=== PATIENT | female | born 1990 | race Caucasian/White ===

== ENCOUNTER 2024-02-15 13:37 | Outpatient (CLI) | payer BC, SELFPAY ==
[2024-02-15 13:58] VITALS: BP 158/93; PULSE 78
[2024-02-15 14:00] VITALS: BMI 34.7
[2024-02-15 14:10] LABS: Basophils Percent Auto 0.2 % (0.2-1.2); Eosinophils Absolute Auto 0.1 K/mm3 (0-0.3); Hematocrit 35.9 % (37.0-47.0); Hemoglobin 12.3 g/dL (12.0-15.0); Immature Granulocyte Absolute 0.04 K/mm3 (0.00-0.031); Immature Granulocyte Percent A 0.3 % (0-0.5); Lymphocytes Percent Auto 16.1 % (18.3-44.2); Mean Corpuscular HGB Conc 34.3 g/dl (32-36); Mean Corpuscular Hemoglobin 29.8 pg (26-34); Mean Corpuscular Volume 86.9 fl (80-100); Mean Platelet Volume 10.2 fl (7.4-10.4); Neutrophils Absolute Auto 9.3 K/mm3 (1.3-6.7); Neutrophils Percent Auto 74.4 % (45.5-73.1); Platelet Count Result 331 k/mm3 (150-375); Red Blood Count 4.13 M/mm3 (4.2-5.4); Red Cell Distribution Width 13.4 % (11.5-14.5); White Blood Count 12.5 K/mm3 (4.5-10.0)
[2024-02-15 14:15] VITALS: BP 157/88; PULSE 86
[2024-02-15 14:15] LABS: Appearance Urine Clear (Clear); Bacteria Urine Rare /hpf; Bilirubin Urine Negative (Negative); Blood Urine Negative (Negative); Color Urine Yellow (Yellow); Glucose Urine UA Negative (Negative); Ketones Urine Negative (Negative); Leukocyte Esterase Ur 2+ LEU/UL (Negative); Nitrate Urine Negative (Negative); Non Pathogenic Casts 0-2; Protein Urine Negative (Negative); RBC Urine 0-2 /hpf (0-2); Specific Grav Ur 1.006 (1.001-1.035); Squamous Epithelial Cell Urine Moderate /hpf (Few); Urobilinogen Urine 0.2 mg/dL (<2.0); pH Urine 7.5 (5.0-9.0)
[2024-02-15 14:20] LABS: Add Urine Microscopic? YES; Creatinine Urine 34.5 mg/dL; Total Protein Urine Random 15 mg/dL; Ur Ttl Prot Creatinine Ratio 0.43 mg/mg (0-0.20)
[2024-02-15 14:28] LABS: Alanine Aminotransferase 16 U/L (6-35); Albumin Level 3.8 g/dL (3.5-5.1); Alkaline Phosphatase 140 U/L (38-126); Anion Gap 9 mmol/L (4-12); Aspartate Amino Transferase 22 U/L (14-36); Bilirubin,Total 0.3 mg/dL (0.2-1.3); Blood Urea Nitrogen 5 mg/dL (7-17); Calcium 9.6 mg/dL (8.4-10.2); Carbon Dioxide 17 mmol/L (22-30); Chloride 111 mmol/L (98-107); Estimated Glomerular Filt Rate > 60; Glucose 84 mg/dL (65-110); Potassium 3.6 mmol/L (3.4-5.0); Sodium 137 mmol/L (137-145)
[2024-02-15 14:30] VITALS: BP 149/81; PULSE 84
== END 2024-02-15 14:55 | disposition home or self-care (01) ==
LOC: ANHOBOP 13:41 → ANHLDR 13:42
PROVIDERS: PCP Family Medicine; Visit Provider Obstetrics & Gynecology
DX: O13.9 Gestational [pregnancy-induced] hypertension without significant proteinuria, unspecified trimester (principal)
CPT/HCPCS: 36415; 59025; 80053; 81001; 81050; 82570; 82575; 84156; 84550; 85025; 87086; 99199

== ENCOUNTER 2024-02-16 19:48 | Outpatient (CLI) | payer BC, SELFPAY ==
[2024-02-16 20:07] VITALS: BMI 34.8
[2024-02-16 23:11] LABS: Collection Time Urine 24 HOURS
[2024-02-16 23:35] LABS: Creatinine Urine 63.1 mg/dL; Patient Weight 216 Lbs; Total Protein Urine Random 13 mg/dL
[2024-02-16 23:37] LABS: Creatinine Clearance Urine 257.6 ml/min (75-125); Total Protein Urine 24 Hr 455 mg/24hr (28-141); Total Volume 24 Hour Urine 3500 ml
[2024-02-16 23:39] LABS: Specific Gravity Ur 1.014
== END 2024-02-16 19:49 | disposition home or self-care (01) ==
LOC: ANHLAB 20:01
PROVIDERS: PCP Family Medicine; Visit Provider Obstetrics & Gynecology
DX: O13.9 Gestational [pregnancy-induced] hypertension without significant proteinuria, unspecified trimester (principal); Z3A.00 Weeks of gestation of pregnancy not specified
CPT/HCPCS: 81050; 82575; 84156

== ENCOUNTER 2024-02-19 10:57 | Outpatient (CLI) | payer BC, SELFPAY ==
[2024-02-19] VITALS (9 sets, daily range): BP systolic 152–159; BP diastolic 87–95; PULSE 80–94
--- NOTE | ~2024-02-19 | US_ITS ---
EXAMINATION: US OB follow up DATE: 02/19/2024 14:09 INDICATION: Preeclampsia. Third trimester. TECHNIQUE: Real-time ultrasound of the pelvis was performed. COMPARISON: None. FINDINGS: There is a single living fetus in vertex presentation. The placenta is fundal and posterior. h eart rate is 153 beats per minute (bpm). The amniotic fluid index is 13.4 cm, which is normal. The following biometric data were obtained: Biparietal diameter (BPD): 8.1 cm; head circumference (HC): 31.9 cm; abdominal circumference (AC): 30 .9 cm; femur length (FL): 6.7 cm. These measurements are concordant. Estimated weight is 2463 g +/- 369 g, which correlates with the 49th percentile when 03/29/24 is used as estimated date of delivery. As single measurements, these parameters are each equal to the following estimated gestational ages: BPD: 32 weeks 3 days. HC: 35 weeks 6 days. AC: 34 weeks 6 days. FL: 34 weeks 3 days. estimated gestational age based solely on measurements from this exam is 34 weeks 3 days +/- 2 weeks 3 days. IMPRESSION: 1. Single living fetus in vertex presentation. 2. Estimated weight is 2463 g +/- 369 g, which correlates with the 49th percentile when 03/29/24 is used as estimated date of delivery. Reviewed, dictated and finalized at location A.
[2024-02-19] MEDS: NIFEdipine 30 MG TAB.ER.24 PO (11:24)
[2024-02-19] MEDS: BETAMETHASONE SOD PHOS/ACETATE 30 MG/5 ML VIAL 12 MG IM (11:25)
[2024-02-19 11:46] LABS: Basophils Percent Auto 0.2 % (0.2-1.2); Eosinophils Absolute Auto 0.1 K/mm3 (0-0.3); Eosinophils Percent Auto 1.3 % (0-4.4); Hematocrit 35.9 % (37.0-47.0); Hemoglobin 11.9 g/dL (12.0-15.0); Immature Granulocyte Absolute 0.03 K/mm3 (0.00-0.031); Immature Granulocyte Percent A 0.3 % (0-0.5); Lymphocytes Absolute Auto 1.94 K/mm3 (0.9-3.2); Lymphocytes Percent Auto 20.4 % (18.3-44.2); Mean Corpuscular HGB Conc 33.1 g/dl (32-36); Mean Corpuscular Hemoglobin 29.7 pg (26-34); Mean Corpuscular Volume 89.5 fl (80-100); Mean Platelet Volume 10.1 fl (7.4-10.4); Monocytes Absolute Auto 0.8 K/mm3 (0.1-0.6); Monocytes Percent Auto 8.4 % (2.6-8.5); Neutrophils Absolute Auto 6.6 K/mm3 (1.3-6.7); Neutrophils Percent Auto 69.4 % (45.5-73.1); Platelet Count Result 329 k/mm3 (150-375); Red Blood Count 4.01 M/mm3 (4.2-5.4); Red Cell Distribution Width 13.3 % (11.5-14.5); White Blood Count 9.5 K/mm3 (4.5-10.0)
[2024-02-19 11:52] LABS: Appearance Urine Cloudy (Clear); Bacteria Urine Rare /hpf; Bilirubin Urine Negative (Negative); Blood Urine Negative (Negative); Color Urine Yellow (Yellow); Glucose Urine UA Trace mg/dL (Negative); Ketones Urine Negative (Negative); Leukocyte Esterase Ur 2+ LEU/UL (Negative); Nitrate Urine Negative (Negative); Non Pathogenic Casts 0-2; Protein Urine Negative (Negative); RBC Urine 0-2 /hpf (0-2); Specific Grav Ur 1.011 (1.001-1.035); Squamous Epithelial Cell Urine Many /hpf (Few); Urobilinogen Urine 0.2 mg/dL (<2.0); pH Urine 7.5 (5.0-9.0)
[2024-02-19 11:54] LABS: Add Urine Microscopic? YES
--- NOTE | 2024-02-19 12:11 | PC.NURSE ---
Patient admits to L&D unit with orders from Dr. La to do a PIH workup as well as give a dose of betamethasone and a one time dose of 30mg Procardia XL. Orders also received for ultrasound to check MANNY and estimated weight. Patient denies headache, blurred vision, ringing in the ears, or any abdominal cramping. Patient has trace swelling in bilateral ankles consistent with gestational age.
[2024-02-19 12:19] LABS: Creatinine Urine 71.9 mg/dL; Total Protein Urine Random 15 mg/dL; Ur Ttl Prot Creatinine Ratio 0.21 mg/mg (0-0.20)
[2024-02-19 12:20] LABS: Alanine Aminotransferase 14 U/L (6-35); Albumin Level 3.4 g/dL (3.5-5.1); Alkaline Phosphatase 127 U/L (38-126); Anion Gap 5 mmol/L (4-12); Aspartate Amino Transferase 20 U/L (14-36); Bilirubin,Total 0.3 mg/dL (0.2-1.3); Blood Urea Nitrogen 5 mg/dL (7-17); Calcium 9.2 mg/dL (8.4-10.2); Carbon Dioxide 19 mmol/L (22-30); Chloride 113 mmol/L (98-107); Estimated Glomerular Filt Rate > 60; Glucose 104 mg/dL (65-110); Potassium 3.6 mmol/L (3.4-5.0); Sodium 137 mmol/L (137-145); Uric Acid 4.2 mg/dL (2.5-7.5)
--- NOTE | 2024-02-19 14:00 | PC.NURSE ---
Called Dr. La with PIH lab values, serial BP results, and US results. Verbal orders received from Dr. La to discharge patient with orders to make an appointment with OB office to be seen early next week and patient sent home with prescription for Procardia XL 30mg. Patient agrees with plan of care and has no questions at this time.
== END 2024-02-19 14:05 | disposition home or self-care (01) ==
LOC: ANHOBOP 11:04 → ANHOBPP 11:05
PROVIDERS: PCP Family Medicine; Visit Provider Obstetrics & Gynecology
DX: O13.9 Gestational [pregnancy-induced] hypertension without significant proteinuria, unspecified trimester (principal); Z3A.34 34 weeks gestation of pregnancy
CPT/HCPCS: 36415; 59025; 76816; 80053; 81001; 82570; 84156; 84550; 85025; 87086; 96372; 99199; A9270; J0702

== ENCOUNTER 2024-02-20 12:11 | Outpatient (CLI) | payer BC, SELFPAY ==
[2024-02-20] MEDS: BETAMETHASONE SOD PHOS/ACETATE 30 MG/5 ML VIAL 12 MG IM (12:25)
== END 2024-02-20 12:27 | disposition home or self-care (01) ==
LOC: ANHOBOP 12:15 → ANHLDR 12:16
PROVIDERS: PCP Family Medicine; Visit Provider Obstetrics & Gynecology
DX: Z36.84 Encounter for antenatal screening for fetal lung maturity (principal)
CPT/HCPCS: 96372; 99199; J0702

== ENCOUNTER 2024-02-23 13:15 | Outpatient (CLI) | payer BC, SELFPAY ==
[2024-02-23] VITALS (78 sets, daily range): BP systolic 146–159; BP diastolic 80–96; PULSE 86–124; RESP 18–22; TEMP 38.2–38.8; O2SAT 92–100; BMI 37.0
--- NOTE | 2024-02-23 13:30 | OBADM ---
This patient, Kamille Menchaca, admitted to the OB room 113 for observation. Patient/family oriented to hospital policies and general routines including ID bracelet, bed and alarms, visiting hours, pain management, procedures, bathroom and other care routines, personal items, smoking policy, room service/diet, and visiting hours. Patient/Family are encouraged to report perceived risks to care and to ask questions if they do not understand what they are told or what they should do.
[2024-02-23] MEDS: ONDANSETRON INJ 4 MG/2 ML VIAL IV PUSH (14:30)
[2024-02-23] MEDS: DEXTROSE 5%/LACTATED RINGERS 1,000 ML 999 ML IV CONT (14:30)
[2024-02-23 14:45] LABS: Basophils Percent Auto 0.2 % (0.2-1.2); Eosinophils Percent Auto 0.2 % (0-4.4); Hematocrit 36.7 % (37.0-47.0); Hemoglobin 12.7 g/dL (12.0-15.0); Immature Granulocyte Absolute 0.06 K/mm3 (0.00-0.031); Immature Granulocyte Percent A 0.5 % (0-0.5); Lymphocytes Absolute Auto 1.53 K/mm3 (0.9-3.2); Lymphocytes Percent Auto 12.4 % (18.3-44.2); Mean Corpuscular HGB Conc 34.6 g/dl (32-36); Mean Corpuscular Hemoglobin 30.2 pg (26-34); Mean Corpuscular Volume 87.2 fl (80-100); Mean Platelet Volume 10.4 fl (7.4-10.4); Monocytes Absolute Auto 0.9 K/mm3 (0.1-0.6); Monocytes Percent Auto 7.2 % (2.6-8.5); Neutrophils Absolute Auto 9.8 K/mm3 (1.3-6.7); Neutrophils Percent Auto 79.5 % (45.5-73.1); Platelet Count Result 346 k/mm3 (150-375); Red Blood Count 4.21 M/mm3 (4.2-5.4); Red Cell Distribution Width 13.6 % (11.5-14.5); White Blood Count 12.3 K/mm3 (4.5-10.0)
[2024-02-23 14:55] LABS: Alanine Aminotransferase 15 U/L (6-35); Albumin Level 3.5 g/dL (3.5-5.1); Alkaline Phosphatase 146 U/L (38-126); Anion Gap 7 mmol/L (4-12); Aspartate Amino Transferase 19 U/L (14-36); Bilirubin,Total 0.4 mg/dL (0.2-1.3); Blood Urea Nitrogen 8 mg/dL (7-17); Calcium 8.7 mg/dL (8.4-10.2); Carbon Dioxide 19 mmol/L (22-30); Chloride 111 mmol/L (98-107); Estimated Glomerular Filt Rate > 60; Glucose 94 mg/dL (65-110); Potassium 3.7 mmol/L (3.4-5.0); Sodium 137 mmol/L (137-145); Uric Acid 4.2 mg/dL (2.5-7.5)
[2024-02-23] MEDS: ACETAMINOPHEN 500 MG TABLET 1000 MG PO (14:59)
[2024-02-23 15:18] LABS: Appearance Urine Cloudy (Clear); Bacteria Urine 2+ /hpf; Bilirubin Urine Negative (Negative); Blood Urine Negative (Negative); Color Urine Yellow (Yellow); Glucose Urine UA 1+ mg/dL (Negative); Ketones Urine 2+ mg/dL (Negative); Leukocyte Esterase Ur 2+ LEU/UL (Negative); Nitrate Urine Negative (Negative); Non Pathogenic Casts 0-2; Protein Urine Negative (Negative); RBC Urine 0-2 /hpf (0-2); Specific Grav Ur 1.017 (1.001-1.035); Squamous Epithelial Cell Urine Many /hpf (Few); Urobilinogen Urine 0.2 mg/dL (<2.0); WBC Urine 21-50 /hpf (0-3); pH Urine 7.5 (5.0-9.0)
[2024-02-23 15:25] LABS: Add Urine Microscopic? YES
[2024-02-23 15:27] LABS: Creatinine Urine 94.1 mg/dL; Total Protein Urine Random 10 mg/dL; Ur Ttl Prot Creatinine Ratio 0.11 mg/mg (0-0.20)
[2024-02-23] MEDS: DEXTROSE 5%/LACTATED RINGERS 1,000 ML 500 ML IV CONT (16:32)
--- NOTE | 2024-02-23 18:40 | PC.NURSE ---
Viridiana- RN received report from Zahra Guzman RN. RN discussed plan of care with patient. Patient agrees with plan of care at this time.
--- NOTE | 2024-02-23 19:53 | PC.NURSE ---
1939- Patient states she is feeling much better. Patient is able to keep PO fluids and soft foods down. Patient temperature down to 99.8. Patient would like to go home since she is feeling better now.
--- NOTE | 2024-02-23 19:55 | PC.NURSE ---
1950- RN gave patient d/c instructions. Patient verbalized understanding with all d/c instructions and no questions at this time. RN sent Rx to pharmacy. Patient to follow up with OB office Monday.
== END 2024-02-23 19:50 | disposition home or self-care (01) ==
LOC: ANHOBOP 13:28 → ANHOBPP 13:29
PROVIDERS: PCP Family Medicine; Visit Provider Obstetrics & Gynecology
DX: Z34.90 Encounter for supervision of normal pregnancy, unspecified, unspecified trimester (principal); Z3A.00 Weeks of gestation of pregnancy not specified
CPT/HCPCS: 36415; 80053; 81001; 82570; 84156; 84550; 85025; 87086; 87088; 96361; 96374; 99199; A9270; J2405; J7121

== ENCOUNTER 2024-03-01 15:58 | Outpatient (RCR) | payer BC, SELFPAY ==
[2024-03-01 17:10] LABS: Basophils Percent Auto 0.1 % (0.2-1.2); Eosinophils Absolute Auto 0.1 K/mm3 (0-0.3); Eosinophils Percent Auto 1.2 % (0-4.4); Hematocrit 32.3 % (37.0-47.0); Hemoglobin 10.7 g/dL (12.0-15.0); Immature Granulocyte Absolute 0.04 K/mm3 (0.00-0.031); Immature Granulocyte Percent A 0.4 % (0-0.5); Lymphocytes Absolute Auto 2.23 K/mm3 (0.9-3.2); Lymphocytes Percent Auto 24.5 % (18.3-44.2); Mean Corpuscular HGB Conc 33.1 g/dl (32-36); Mean Corpuscular Hemoglobin 29.6 pg (26-34); Mean Corpuscular Volume 89.5 fl (80-100); Mean Platelet Volume 9.8 fl (7.4-10.4); Monocytes Absolute Auto 0.7 K/mm3 (0.1-0.6); Monocytes Percent Auto 8.1 % (2.6-8.5); Neutrophils Percent Auto 65.7 % (45.5-73.1); Platelet Count Result 361 k/mm3 (150-375); Red Blood Count 3.61 M/mm3 (4.2-5.4); Red Cell Distribution Width 13.9 % (11.5-14.5); White Blood Count 9.1 K/mm3 (4.5-10.0)
[2024-03-01 17:14] LABS: Appearance Urine Cloudy (Clear); Bacteria Urine None Seen /hpf; Bilirubin Urine Negative (Negative); Blood Urine Negative (Negative); Color Urine Yellow (Yellow); Glucose Urine UA Negative (Negative); Ketones Urine Negative (Negative); Leukocyte Esterase Ur 1+ LEU/UL (Negative); Nitrate Urine Negative (Negative); Non Pathogenic Casts 0-2; Protein Urine Negative (Negative); RBC Urine 0-2 /hpf (0-2); Specific Grav Ur 1.015 (1.001-1.035); Squamous Epithelial Cell Urine Few /hpf (Few); Urobilinogen Urine 0.2 mg/dL (<2.0); pH Urine 7.5 (5.0-9.0)
[2024-03-01 17:16] LABS: Creatinine Urine 64.5 mg/dL; Total Protein Urine Random 14 mg/dL; Ur Ttl Prot Creatinine Ratio 0.22 mg/mg (0-0.20)
[2024-03-01 17:20] LABS: Alanine Aminotransferase 69 U/L (6-35); Albumin Level 3.3 g/dL (3.5-5.1); Alkaline Phosphatase 139 U/L (38-126); Anion Gap 4 mmol/L (4-12); Aspartate Amino Transferase 40 U/L (14-36); Bilirubin,Total 0.2 mg/dL (0.2-1.3); Blood Urea Nitrogen 5 mg/dL (7-17); Carbon Dioxide 23 mmol/L (22-30); Chloride 109 mmol/L (98-107); Estimated Glomerular Filt Rate > 60; Glucose 96 mg/dL (65-110); Potassium 3.7 mmol/L (3.4-5.0); Sodium 136 mmol/L (137-145); Uric Acid 3.9 mg/dL (2.5-7.5)
[2024-03-01 17:27] LABS: Add Urine Microscopic? YES
[2024-03-01 17:32] VITALS: BP 153/86; PULSE 73
== END 2024-05-30 23:59 | disposition home or self-care (01) ==
LOC: ANHOBOP 15:58
PROVIDERS: PCP Family Medicine; Visit Provider Obstetrics & Gynecology
DX: O16.3 Unspecified maternal hypertension, third trimester (principal); Z3A.00 Weeks of gestation of pregnancy not specified
CPT/HCPCS: 36415; 59025; 80053; 81001; 82570; 84156; 84550; 85025; 87086

== ENCOUNTER 2024-03-07 17:29 | Inpatient (IN) | payer BC, SELFPAY ==
[2024-03-07] VITALS (38 sets, daily range): BP systolic 129–168; BP diastolic 71–102; PULSE 77–99; RESP 18; TEMP 36.7–37.1; O2SAT 95–100; BMI 34.8
--- NOTE | 2024-03-07 17:29 | LDADM ---
This patient, Kamille Menchaca, was admitted to Labor/Delivery/Recovery 107 on 03/07/24 at 17:29. Plans for labor, pain management and were discussed with patient. Patient/family oriented to hospital policies and general routines including ID bracelet, bed and alarms, visiting hours, pain management, procedures, bathroom and other care routines, personal items, smoking policy, room service/diet and guest tray routines, infant security routines, and visiting hours. Patient/Family are encouraged to report perceived risks to care and to ask questions if they do not understand what they are told or what they should do. See OBIX for further documentation.
[2024-03-07 17:55] LABS: Basophils Percent Auto 0.2 % (0.2-1.2); Eosinophils Absolute Auto 0.1 K/mm3 (0-0.3); Hematocrit 35.3 % (37.0-47.0); Hemoglobin 12.2 g/dL (12.0-15.0); Immature Granulocyte Absolute 0.04 K/mm3 (0.00-0.031); Immature Granulocyte Percent A 0.3 % (0-0.5); Lymphocytes Absolute Auto 2.17 K/mm3 (0.9-3.2); Lymphocytes Percent Auto 18.5 % (18.3-44.2); Mean Corpuscular HGB Conc 34.6 g/dl (32-36); Mean Corpuscular Volume 86.9 fl (80-100); Mean Platelet Volume 9.9 fl (7.4-10.4); Monocytes Absolute Auto 0.9 K/mm3 (0.1-0.6); Monocytes Percent Auto 7.5 % (2.6-8.5); Neutrophils Absolute Auto 8.5 K/mm3 (1.3-6.7); Neutrophils Percent Auto 72.5 % (45.5-73.1); Platelet Count Result 430 k/mm3 (150-375); Red Blood Count 4.06 M/mm3 (4.2-5.4); Red Cell Distribution Width 13.4 % (11.5-14.5); White Blood Count 11.8 K/mm3 (4.5-10.0)
[2024-03-07 18:07] LABS: Alanine Aminotransferase 30 U/L (6-35); Albumin Level 3.9 g/dL (3.5-5.1); Alkaline Phosphatase 174 U/L (38-126); Anion Gap 8 mmol/L (4-12); Aspartate Amino Transferase 24 U/L (14-36); Bilirubin,Total 0.3 mg/dL (0.2-1.3); Blood Urea Nitrogen 6 mg/dL (7-17); Calcium 9.6 mg/dL (8.4-10.2); Carbon Dioxide 19 mmol/L (22-30); Chloride 110 mmol/L (98-107); Estimated CRCL calculation 159 ml/min; Estimated Glomerular Filt Rate > 60; Glucose 122 mg/dL (65-110); Potassium 3.7 mmol/L (3.4-5.0); Sodium 137 mmol/L (137-145); Uric Acid 4.3 mg/dL (2.5-7.5)
[2024-03-07] MEDS: DINOPROSTONE 10 MG VAG INSERT VAGINAL (18:18)
[2024-03-07] MEDS: LABETALOL HCL 100 MG TABLET PO (18:35)
[2024-03-07 18:47] LABS: HIV 1/2 Ab P24 Ag Result Negative (Negative)
--- NOTE | 2024-03-07 19:30 | WPDANESEPP ---
Anes - Eval Pre Procedure Procedure: Labor epidural Date/Time: 03/07/24 19:30 Pre Op Diagnosis: IOL Patient Data Age: 33 Gender: F Height: 1.68 m Weight: 98 kg Last Vital Signs Temp 37.1 C 03/07/24 18:17 Pulse 82 03/07/24 19:16 Resp 18 03/07/24 18:10 BP 152/80 H 03/07/24 19:16 Pulse Ox 98 03/07/24 19:25 O2 Del Method Room Air 03/07/24 19:07 Allergies Allergy/AdvReac Type Severity Reaction Status Date / Time amoxicillin Allergy Unknown Unknown Verified 03/07/24 17:45 ultrasound gel Allergy Intermediate Rash Uncoded 03/07/24 17:47 Home Medications Medication Instructions Recorded Confirmed Type aspirin 81 mg chewable tablet 81 mg PO DAILY 09/13/23 03/01/24 History cholecalciferol (vitamin D3) 50 50 mcg PO DAILY 09/13/23 03/01/24 History mcg (2,000 unit) capsule vits no.126-ferrous fum 1 tablet PO DAILY 09/13/23 03/01/24 History 28 mg iron-folic acid 800 mcg tablet (Classic ) labetalol 100 mg tablet 100 mg PO Q12H 03/01/24 03/01/24 History Laboratory Tests 03/07/24 03/07/24 17:39 17:39 WBC 11.8 H K/mm3 (4.5-10.0) RBC 4.06 L M/mm3 (4.2-5.4) Hgb 12.2 g/dL (12.0-15.0) Hct 35.3 L % (37.0-47.0) MCV 86.9 fl (80-100) MCH 30.0 pg (26-34) MCHC 34.6 g/dl (32-36) RDW 13.4 % (11.5-14.5) Plt Count 430 H k/mm3 (150-375) MPV 9.9 fl (7.4-10.4) Immature Gran % (Auto) 0.3 % (0-0.5) Neut % (Auto) 72.5 % (45.5-73.1) Lymph % (Auto) 18.5 % (18.3-44.2) [place] % (Auto) 7.5 % (2.6-8.5) Eos % (Auto) 1.0 % (0-4.4) Baso % (Auto) 0.2 % (0.2-1.2) Lymph # (Auto) 2.17 K/mm3 (0.9-3.2) [place] # (Auto) 0.9 H K/mm3 (0.1-0.6) Eos # (Auto) 0.1 K/mm3 (0-0.3) Baso # (Auto) 0.0 K/mm3 (0.0-0.1) Abs Immat Gran (auto) 0.04 H K/mm3 (0.00-0.031) Absolute Neuts (auto) 8.5 H K/mm3 (1.3-6.7) Absolute Nucleated RBC 0.000 K/mm3 (0.0-0.012) Nucleated RBC % 0.0 % (0.0-0.2) Sodium 137 mmol/L (137-145) Potassium 3.7 mmol/L (3.4-5.0) Chloride 110 H mmol/L (98-107) Carbon Dioxide 19 L mmol/L (22-30) Anion Gap 8 mmol/L (4-12) BUN 6 L mg/dL (7-17) Creatinine 0.50 L mg/dL (0.7-1.0) Estim Creat Clear Calc 159 ml/min Estimated GFR > 60 (59 - ) Glucose 122 H mg/dL (65-110) Uric Acid Cancelled 4.3 mg/dL (2.5-7.5) Calcium 9.6 mg/dL (8.4-10.2) Total Bilirubin 0.3 mg/dL (0.2-1.3) AST 24 U/L (14-36) ALT 30 U/L (6-35) Alkaline Phosphatase 174 H U/L (38-126) Total Protein 7.0 g/dL (6.3-8.2) Albumin 3.9 g/dL (3.5-5.1) RPR Pending HIV 1&2 Ab/P24 Ag 4thGn Negative (Negative) Blood Type O Positive Antibody Screen Negative Patient hx anesthesia problems: none Family hx anesthesia problems: none Results Review: All pre-operative results and documents have been reviewed as part of the pre-operative evaluation. [facility] Past Medical History Medical History (Updated 03/07/24 @ 19:31 by Cheri Jack CRNA) Complex regional pain syndrome i of left lower limb Dysmenorrhea Pre-eclampsia Family History Family History Other Breast cancer Cerebrovascular accident Diabetes mellitus Hypertension Malignant neoplasm of prostate Social History Social History Smoking status: Never smoker Alcohol intake: former Substance use: never Do You Feel Safe in your Home?: No Lack of Transportation: No Lack of Food: Never True Current Housing: I Have Housing Concerned About Future Housing: No Difficulty Paying Gas/Electric Bills: No Difficulty Paying for Meds: No Currently Unemployed:
[2024-03-08] VITALS (348 sets, daily range): BP systolic 108–181; BP diastolic 56–107; PULSE 68–118; TEMP 36.6–37.7; O2SAT 93–100
--- NOTE | 2024-03-08 04:54 | PC.NURSE ---
Telephone order received from Dr. La at 1247 to administer morning dose of labetolol at this time. Reported to pharmacist to adjust time in DEC. Will chart accordingly.
[2024-03-08] MEDS: LABETALOL HCL 100 MG TABLET PO ×2 (04:57→17:26)
[2024-03-08] MEDS: LACTATED RINGERS 1,000 ML 125 ML IV CONT ×4 (05:20→20:47)
[2024-03-08] MEDS: OXYTOCIN 30 UNITS/NS 500 ML 30 UNITS/500 ML BAG IV CONT (05:35)
--- NOTE | 2024-03-08 08:51 | PM.IMHP ---
H&P: HPI History of Present Illness Date/Time: 03/08/24 08:51 Chief Complaint: Here for induction of labor. Narrative: 34 y/o G1 at 37 weeks here for induction of labor due to preeclampsia. Has been taking labetalol 100 mg po bid. No headache, visual field change, or abdominal pain. Good movement. Cervidil overnight, has been withdrawn. GBS neg. Review of Systems Review of Systems: All systems reviewed & are unremarkable except as noted in HPI and below PMFSH Past Medical History Medical History Complex regional pain syndrome i of left lower limb Dysmenorrhea Pre-eclampsia Family History Family History Other Breast cancer Cerebrovascular accident Diabetes mellitus Hypertension Malignant neoplasm of prostate Social History Social History Smoking status: Never smoker Alcohol intake: former Substance use: never Do You Feel Safe in your Home?: No Lack of Transportation: No Lack of Food: Never True Current Housing: I Have Housing Concerned About Future Housing: No Difficulty Paying Gas/Electric Bills: No Difficulty Paying for Meds: No Currently Unemployed: No Education: High School Diploma/GED Difficulty w/ Childcare or Family Care: No Spiritual care concerns: No Meds Home Medications and Allergies Home Medications Medication Instructions Recorded Confirmed Type aspirin 81 mg chewable tablet 81 mg PO DAILY 09/13/23 03/01/24 History cholecalciferol (vitamin D3) 50 50 mcg PO DAILY 09/13/23 03/01/24 History mcg (2,000 unit) capsule vits no.126-ferrous fum 1 tablet PO DAILY 09/13/23 03/01/24 History 28 mg iron-folic acid 800 mcg tablet (Classic ) labetalol 100 mg tablet 100 mg PO Q12H 03/01/24 03/01/24 History Allergies Allergy/AdvReac Type Severity Reaction Status Date / Time amoxicillin Allergy Unknown Unknown Verified 03/07/24 17:45 ultrasound gel Allergy Intermediate Rash Uncoded 03/07/24 17:47 Vital Signs Vital Signs - 24 hr 03/07/24 18:10 03/07/24 18:30 03/07/24 18:35 Temperature 37.1 C Pulse Rate 93 89 Respiratory Rate 18 Blood Pressure 168/102 H 157/90 H Pulse Oximetry 98 98 Oxygen Delivery 03/07/24 18:40 03/07/24 18:45 03/07/24 18:17 Temperature 37.1 C Pulse Rate 80 Respiratory Rate Blood Pressure 153/82 H Pulse Oximetry 98 100 Oxygen Delivery 03/07/24 18:50 03/07/24 18:55 03/07/24 19:00 Temperature Pulse Rate Respiratory Rate Blood Pressure Pulse Oximetry 96 98 98 Oxygen Delivery 03/07/24 19:05 03/07/24 19:10 03/07/24 19:15 Temperature Pulse Rate Respiratory Rate Blood Pressure Pulse Oximetry 97 98 99 Oxygen Delivery 03/07/24 19:16 03/07/24 19:20 03/07/24 19:25 Temperature Pulse Rate 82 Respiratory Rate Blood Pressure 152/80 H Pulse Oximetry 97 98 Oxygen Delivery 03/07/24 19:30 03/07/24 19:35 03/07/24 19:40 Temperature Pulse Rate 82 Respiratory Rate Blood Pressure 151/81 H Pulse Oximetry 98 96 98 Oxygen Delivery 03/07/24 19:45 03/07/24 19:46 03/07/24 19:50 Temperature Pulse Rate 79 Respiratory Rate Blood Pressure 151/74 H Pulse Oximetry 99 97 Oxygen Delivery 03/07/24 19:55 03/07/24 20:00 03/07/24 20:01 Temperature Pulse Rate 80 Respiratory Rate Blood Pressure 146/77 H Pulse Oximetry 95 97 Oxygen Delivery 03/07/24 20:05 03/07/24 20:10 03/07/24 20:15 Temperature Pulse Rate Respiratory Rate Blood Pressure Pulse Oximetry 97 97 99 Oxygen Delivery 03/07/24 20:16 03/07/24 20:20 03/07/24 20:22 Temperature 36.7 C Pulse Rate 77 Respiratory Rate Blood Pressure 143/78 H Pulse Oximetry 97 96 Oxygen Delivery 03/07/24 20:31 03/07/24 21:00
[2024-03-08 11:23] LABS: Rapid Plasma Reagin Non-Reactive (NonReactive)
[2024-03-08] MEDS: ONDANSETRON INJ 4 MG/2 ML VIAL IV PUSH (12:41)
--- NOTE | 2024-03-08 16:52 | PM.OBPNLAB ---
Pain Control Date/time seen: 03/08/24 12:30 Comfortable with epidural. AVSS NST reactive TOCO: contractions every 2-3 min ABD soft, nontender, gravid, vertex EXT nontender Cervix 1-250/-2. AROM with clear fluid. Continue labor.
--- NOTE | 2024-03-08 16:54 | PM.OBPNLAB ---
Pain Control Date/time seen: 03/08/24 16:50 Comfortable. AVSS NST reactive TOCO: contractions every 2-3 min Cervix 2-3/80/-2 Continue labor.
[2024-03-09] VITALS (96 sets, daily range): BP systolic 136–173; BP diastolic 63–99; PULSE 73–119; RESP 16–18; TEMP 36.9–37.5; O2SAT 85–100
[2024-03-09] MEDS: LABETALOL HCL 100 MG TABLET PO ×2 (05:25→08:25)
[2024-03-09] MEDS: OXYTOCIN 30 UNITS/NS 500 ML 30 UNITS/500 ML BAG 999 UNITS IV CONT (06:32)
--- NOTE | 2024-03-09 06:45 | PM.OBPRVD ---
OB - Vaginal Delivery Note Procedure Delivery date: 03/09/24 Events: Preeclampsia w/o severe features Induction method: Per Cervidil Protocol Delivery augmentation: Rupture of Membranes and Pitocin Delivery monitor: External FHT, External Uterine and Internal Uterine Route of delivery: Episiotomy description: None Laceration Description: Perineal - 2nd Degree Delivery repair: vicryl (3-0) Specimen: Yes (cord blood, placenta) Quantitative Blood Loss (ml): 140 Anesthesia type: Epidural Disposition: PACU Complications: None Narrative: 33 y/o G1 at 37 1/7 weeks gestation who presented to the hospital for induction of labor because of preeclampsia. Cervidil was placed overnight, then withdrawn the next morning. Oxytocin was administered intravenously. Amniotomy was performed with return of clear fluid. She received an epidural for pain control. Her labor progressed and her cervix dilated completely. She pushed with good effort and delivered the 's head to the perineum, followed by the body. The nose and mouth were bulb suctioned. After a delay, the cord was clamped and cut. The infant was handed off the field. Cord blood was collected. The placenta delivered spontaneously and was grossly normal in appearance. The usual 3 vessel cord was noted. A second degree midline perineal laceration was sustained. This was reapproximated using 3 0 Vicryl in the usual layered fashion. Excellent hemostasis resulted as did excellent reapproximation of the normal anatomy. Needle and instrument counts were correct. The patient was taken to recovery room in stable condition. The infant went to the nursery in stable condition. I was present and scrubbed for the entire delivery. Baby Date of : 03/09/24 Time of : 06:46 Weeks of gestation at delivery: 37 Infant gender: Male Weight (pounds): 5 Weight (ounces): 12 presentation: vertex position: Left Occiput Anterior Placenta delivery description: Spontaneous and Normal Configuration Cord Vessel Description: 3 Vessels, Nuchal Cord and Delayed Cord Clamping score one minute: 8 score five minutes: 8
--- NOTE | 2024-03-09 06:48 | PM.OBDSVD ---
DS: Admitting Diagnosis Discharge Date 03/11/24 Admitting Diagnosis IUP at 37 weeks Preeclampsia DS: Discharge Diagnosis Discharge Diagnosis (1) (normal spontaneous vaginal delivery): Code(s): O80 - Encounter for full-term uncomplicated delivery Status: Acute (2) Pre-eclampsia: Code(s): O14.90 - Unspecified pre-eclampsia, unspecified trimester Status: Acute OB - DS: Summary OB Procedures : PIH Mgmt OB Procedures Intrapartum: Spontaneous Vag Delivery OB Procedures: : None Peripartum Data Laceration Description: Perineal - 2nd Degree Episiotomy description: None Time Spent with Patient Time attestation: Total time spent providing and/or coordinating discharge services: DS: Data Data Completed and Pending Labs on day of discharge: Labs from last 24 hours 03/07/24 17:39 RPR Non-reactive Discharge Plan Discharge Attending physician on discharge: Pepe La Discharging Clinician: Pepe La Patient Disposition: Home, Self-Care Activity: pelvic rest Diet: regular Discharge Instructions: Call or return if temperature above 100.4? F, increased abdominal pain, increased vaginal bleeding or any new problems. Stand Alone Forms: General Discharge Information Follow-up/Referrals: Pepe La MD [Physician] - 6 Weeks Discharge Medications: New ferrous sulfate 325 mg (65 mg iron) tablet 325 mg PO DAILY Qty: 30 0RF ibuprofen 600 mg tablet 600 mg PO Q6H PRN (Reason: cramps) Qty: 30 0RF Continued Classic 28 mg iron- 800 mcg tablet 1 tablet PO DAILY cholecalciferol (vitamin D3) 50 mcg (2,000 unit) capsule 50 mcg PO DAILY Changed labetalol 100 mg Tablet 200 mg PO Q12H Qty: 60 0RF Discontinued aspirin 81 mg tablet,chewable 81 mg PO DAILY Date of admission: 03/07/24 17:29 Primary Care Provider: Nabil Maher Admitting Provider: Pepe La Attending physician on admission: Pepe La Condition: Stable
[2024-03-09] MEDS: OXYTOCIN 30 UNITS/NS 500 ML 30 UNITS/500 ML BAG 125 UNITS IV CONT (07:04)
[2024-03-09] MEDS: WITCH HAZEL 40 PADS 1 PAD TOPICAL (08:26)
[2024-03-09] MEDS: IBUPROFEN 600 MG TABLET PO ×2 (08:26→23:09)
[2024-03-09] MEDS: BENZOCAINE 20% AER SPR (*SP) 56 GM CAN 1 SPRAY TOPICAL (08:27)
--- NOTE | 2024-03-09 09:44 | OBPPTRN ---
0925-Patient transferred to post room #281 via wheelchair. Support person present. Oriented to unit, room, information board, rooming in, admission packet and security measures. Patient verbalizes understanding.
[2024-03-09] MEDS: ACETAMINOPHEN 325 MG TABLET 650 MG PO (18:32)
[2024-03-09] MEDS: LABETALOL HCL 100 MG TABLET 300 MG PO (19:17)
[2024-03-10] VITALS (7 sets, daily range): BP systolic 127–156; BP diastolic 71–94; PULSE 79–111; RESP 16–18; TEMP 36.8–37.1; O2SAT 98–100
[2024-03-10 06:01] LABS: Hematocrit 27.5 % (37.0-47.0)
[2024-03-10] MEDS: IBUPROFEN 600 MG TABLET PO ×3 (07:57→20:44)
[2024-03-10] MEDS: MULTIVIT/MIN/PREN/FOL AC/IRON TABLET 1 TAB PO ×2 (07:59)
[2024-03-10] MEDS: POLYSACCHARIDE IRON COMPLEX 150 MG CAPSULE PO ×2 (07:59→16:34)
[2024-03-10] MEDS: DOCUSATE SODIUM 100 MG CAPSULE PO ×2 (07:59→16:34)
[2024-03-10] MEDS: LABETALOL HCL 100 MG TABLET 300 MG PO ×2 (08:00→20:39)
--- NOTE | 2024-03-10 08:05 | PM.OBPNVD ---
OB - PN: Subj Subjective Date/time seen: 03/10/24 08:05 Narrative: Pain OK. Would like circumcision for son. OB - PN: Obj Data Labs 03/10/24 04:21 03/07/24 17:39 Labs: Laboratory Results - last 24 hr 03/10/24 04:21 Hgb 9.0 L D Hct 27.5 L OB - PN A/P Plan Comments: A: PPD#1, doing well. BP under decent control on labetalol 300 mg po bid. P: Routine care. Reviewed circ. Plan home tomorrow. Exam Psych: Other: AVSS ABD soft, nontender, fundus firm EXT nontender
--- NOTE | 2024-03-10 09:47 | WPDANLDPN2 ---
Anes-Prog Note L&D Date/Time: 03/10/24 09:47 Comfortable throughout: labor and delivery Neuraxial method: epidural Epidural/Spinal procedure site: clean & non-tender Neuro status: Neuro function grossly intact. Cardiovascular status: normal Respiratory status: normal Airway patency: baseline Mental status: baseline Post-Op hydration status: normal Vital Signs: Last Vital Signs Temp 36.8 C 03/10/24 04:15 Pulse 82 03/10/24 08:00 Resp 16 03/10/24 04:15 BP 137/82 03/10/24 04:15 Pulse Ox 98 03/10/24 04:15 O2 Del Method Room Air 03/09/24 10:00 Pain score (VAS): 2 I/O: Intake & Output 03/09/24 03/10/24 03/10/24 23:59 07:59 15:59 Intake Total 300 850 Output Total 500 1950 Balance -200 -1100 Post-procedural complaints: none Patient feedback: Patient satisfied with anesthetic care.
[2024-03-10] MEDS: ACETAMINOPHEN 325 MG TABLET 650 MG PO (20:44)
[2024-03-11 03:45] VITALS: BP 138/80
[2024-03-11 08:30] VITALS: BP 149/73; PULSE 78; RESP 16; TEMP 37.6; O2SAT 98
--- NOTE | 2024-03-11 09:00 | PM.OBPNVD ---
OB - PN: Subj Subjective Date/time seen: 03/11/24 09:00 Narrative: Pain OK. Would like to go home. OB - PN: Obj Data Labs 03/10/24 04:21 03/07/24 17:39 OB - PN A/P Plan Comments: A: PPD#2, doing well. P: Home to f/u 6 weeks. Exam Psych: Other: AVSS ABD soft, nontender, fundus firm EXT nontender
[2024-03-11] MEDS: LABETALOL HCL 100 MG TABLET 300 MG PO (09:03)
[2024-03-11] MEDS: ACETAMINOPHEN 325 MG TABLET 650 MG PO (09:03)
[2024-03-11] MEDS: DOCUSATE SODIUM 100 MG CAPSULE PO (09:04)
[2024-03-11] MEDS: POLYSACCHARIDE IRON COMPLEX 150 MG CAPSULE PO (09:04)
[2024-03-11] MEDS: IBUPROFEN 600 MG TABLET PO (09:04)
[2024-03-11] MEDS: MULTIVIT/MIN/PREN/FOL AC/IRON TABLET 1 TAB PO (09:05)
[2024-03-11 12:38] VITALS: BP 152/86; PULSE 80; RESP 16; TEMP 37.2; O2SAT 97
--- NOTE | 2024-03-11 13:09 | PC.NURSE ---
[id number] Introductions were made, then consulted with patient to assess needs related to . Mother led the conversation with her?plans to feed?her infant, the?experience so far and many concerns and questions were answered. Encouraged understanding of the benefits of skin to skin (demonstrating unwrapping and placing upright on her chest), stimulating with massage touch, changing positions to encourage wakefulness, how to watch for early feeding cues, responsive feeding, feeding on demand (aiming for 8-12 times in 24 hours, about every 2-3 hours), milk production, building/maintaining a milk supply, duration of feeding, signs of adequate intake/output and how to record on the feeding sheet. Mother works well with her with encouragement and education. Reviewed positioning and ear, shoulder, hip alignment, supporting the breast to facilitate a deep latch, asymmetrical latch (off-center), leading with the chin with a big, open, wide gape and body close to mother. Infant latched optimally to the right breast in cross cradle position. Education given to the mother of how to visualize the suckling (with good rocking jaw motion), swallows (dropping of the lower jaw) and how to listen for drinking at the breast (the ka sound) which infant demonstrated frequently and mother acknowledged visualizing and hearing. Infant was able to maintain latch without pain to mother protecting the nipple with optimal positioning and latching. Mother is feeding appropriately for growth of and understands stimulating infant to eat if needed. Parents supplementing after during the first 24 hours related to being called a lazy eater . Infant self detached with a content appearance and nipple was not misshaped. has had appropriate feedings in the last 24 hours meets the outcomes for weight, output, blood sugar and jaundice at this time. Reinforced understanding of milk production, transition of milk, signs of adequate intake, transition of stool, prevention/relief of engorgement, plugged ducts, mastitis, responsive watching for feeding cues, the different methods of stimulating infant to breastfeed 1-3 hours after the start of the last feeding, community resources, and when to call a provider using the resource of the feeding sheet along with the mom and baby guide. Parents voiced understanding of the information shared, is confident to continue effectively her at home, when to call for assistance, denies any additional assistance or education at this time.
[2024-03-12 11:46] VITALS: BP 157/92; PULSE 83; RESP 18; TEMP 37.3; O2SAT 100
== END 2024-03-11 13:10 | disposition home or self-care (01) | DRG 807 ==
LOC: ANHLDR 03-09 06:51 → ANHOB2 03-09 09:35
PROVIDERS: Admitting Provider Obstetrics & Gynecology; PCP Family Medicine; Visit Provider Obstetrics & Gynecology
DX: O14.94 Unspecified pre-eclampsia, complicating childbirth (principal); Z37.0 Single live birth; Z3A.37 37 weeks gestation of pregnancy; O70.1 Second degree perineal laceration during delivery; O69.81X0 Labor and delivery complicated by cord around neck, without compression, not applicable or unspecified
CPT/HCPCS: 36415; 80053; 84550; 85014; 85018; 85025; 86592; 86703; 86850; 86900; 86901; 88307; A9270; G0432; J2405; J2590; J2795; J7120